=== PATIENT | female | born 1975 | race Caucasian/White ===

== ENCOUNTER 2021-08-09 08:47 | Emergency (ER) | payer BC ==
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
[2021-08-09 09:10] VITALS: BP 170/100; PULSE 77; O2SAT 97
== END 2021-08-09 10:20 | disposition home or self-care (01) ==
LOC: ED 08:47
DX: H10.213 Acute toxic conjunctivitis, bilateral (principal)
CPT/HCPCS: 99283